=== PATIENT | female | born 1990 | race Caucasian/White ===

== ENCOUNTER → 2017-01-23 | Outpatient (CLI) | payer OTHER ==
[~2017-01-23] MED LIST: /CELE20CA PO; AUGM875T27 PO; NEUR300C PO; NO HOME MEDS; OXYC-208 PO
[2017-01-23 10:52] LABS: BASO % 0.2 % (0.0-1.0); EOS # 0.1 K/mm3 (0.0-0.50); EOS % 1.4 % (0.0-3.0); LYMPH # 2.6 K/mm3 (1.5-6.5); LYMPH % 29.7 % (24.0-44.0); MEAN CORPUSCULAR HEMOGLOBIN 29.6 pg (27.0-33.0); MEAN CORPUSCULAR HGB CONC 33.4 g/dl (32.0-36.5); MEAN CORPUSCULAR VOLUME 88.5 fl (80.0-96.0); MONO # 0.3 K/mm3 (0.0-0.8); MONO % 3.6 % (0.0-5.0); NEUTROPHILS # 5.3 K/mm3 (1.8-7.7); NEUTROPHILS % 63.8 % (36.0-66.0); RED CELL DISTRIBUTION WIDTH 12.6 % (11.5-14.5); WHITE BLOOD COUNT 8.2 K/mm3 (4.0-10.0)
[2017-01-23 11:19] LABS: ALBUMIN 3.7 GM/DL (3.2-5.2); ALBUMIN/GLOBULIN RATIO 0.97 (1.00-1.93); ALKALINE PHOSPHATASE 94 U/L (45-117); ALT/SGPT 37 U/L (12-78); ANION GAP 6 MEQ/L (8-16); AST/SGOT 30 U/L (15-37); BILIRUBIN,TOTAL 0.4 MG/DL (0.2-1.0); BLOOD UREA NITROGEN 7 MG/DL (7-18); CALCIUM LEVEL 8.7 MG/DL (8.5-10.1); CARBON DIOXIDE LEVEL 27 MEQ/L (21-32); CHLORIDE LEVEL 106 MEQ/L (98-107); CHOLESTEROL LEVEL 132 MG/DL (<200); CREATININE FOR GFR 0.62 MG/DL (0.55-1.02); FREE T4 1.13 NG/DL (0.76-1.46); GLOMERULAR FILTRATION RATE > 60.0 (>60); GLUCOSE, FASTING 82 MG/DL (70-105); POTASSIUM SERUM 4.1 MEQ/L (3.5-5.1); SODIUM LEVEL 139 MEQ/L (136-145); TOTAL PROTEIN 7.5 GM/DL (6.4-8.2); TRIGLYCERIDES LEVEL 62 MG/DL (<150)
== END ==
LOC: M LAB 10:14
PROVIDERS: ATTEND Nurse Practitioner Adult Health
DX: E55.9 Vitamin D deficiency, unspecified (principal); E78.00 Pure hypercholesterolemia, unspecified; G89.29 Other chronic pain; Z79.899 Other long term (current) drug therapy

== ENCOUNTER → 2017-02-03 | Outpatient (CLI) | payer OTHER ==
--- NOTE | 2017-02-03 11:33 | REP ---
Cervical spine seven views: There are no comparisons. Vertebral body heights, interspacing alignment are normal. There is no spondylolisthesis on flexion or extension. The facets are normally aligned. The odontoid view is unremarkable. There is no bony foraminal encroachment. The prevertebral soft tissues are normal. Impression: Negative plain film study of the cervical spine. Signed by Ector Coleman MD 02/03/2017 11:24 A
--- NOTE | 2017-02-03 11:34 | REP ---
Thoracic spine two views: Comparison is a PA and lateral chest dated 10/13/2010. Vertebral body heights, interspacing alignment are normal. Mineralization is normal. The pedicles are unremarkable. There is no interval change. Impression: Negative thoracic spine Signed by Ector Coleman MD 02/03/2017 11:25 A
--- NOTE | 2017-02-03 11:36 | REP ---
Left shoulder three views: Mineralization and joint spaces are normal. There is no fracture or dislocation. No calcifications or foreign bodies. Impression: Negative left shoulder. Right shoulder three views: Mineralization and joint spaces are normal. There is no fracture or dislocation. No calcifications or foreign bodies. Impression: Negative right shoulder. Signed by Ector Coleman MD 02/03/2017 11:27 A
--- NOTE | 2017-02-03 11:40 | REP ---
Bilateral hips and lumbar spine: Right hip two views: There are no comparisons. Mineralization and joint space are normal. There is no femoral head deformity. No fracture or dislocation. There is accessory ossicle superior to the greater trochanter. The study is otherwise unremarkable. Impression: Essentially negative right hip. Left hip two views: Mineralization and joint space are normal R normal. There is no femoral head deformity. No fracture or dislocation. There is a small accessory ossicle superior to the greater trochanter. The study is otherwise unremarkable. Impression: Essentially negative left hip. Lumbar spine five views: Comparison is 07/05/2015. The vertebral body heights, interspacing and alignment are normal and unchanged. There is no spondylolysis or spondylolisthesis. The pedicles, facets and sacroiliac articulations are unremarkable. Impression: Negative lumbar spine. There is no interval change. Signed by Ector Coleman MD 02/03/2017 11:31 A
--- NOTE | 2017-02-05 14:12 | SLEEPHOME ---
DATE OF PROCEDURE: 02/03/2017 REFERRING PROVIDER: Dr. Kamara INTERPRETATION: Diagnostic home sleep testing was performed due to concern for the obstructive sleep apnea syndrome. For testing, a NOX-T3 respiratory monitoring device was used. Continuous record was made of pulse, oxygen saturation, air flow, chest and abdominal strain, and body position. 10 hours and 59 minutes of data were reviewed. Of these, 8 hours and 21 minutes marked as time in bed. During the interval marked time in bed, there were 6 respiratory events identified of 10 seconds in duration or greater for a respiratory event index of 0.7. The events were hypopneic. Baseline pulse rate 73 beats per minute. Pulse rate ranged 54 to 112. Baseline saturation 94%. Lowest oxygen saturation achieved 90%. IMPRESSION: Normal home sleep testing with few respiratory events and adequate oxygen saturation. No evidence was identified to support obstructive sleep apnea syndrome.
== END ==
LOC: M SLEEP HO 10:02
PROVIDERS: ATTEND Nurse Practitioner Adult Health
DX: G47.33 Obstructive sleep apnea (adult) (pediatric) (principal)

== ENCOUNTER → 2018-05-24 | Outpatient (REF) | payer OTHER | LOC: M LAB REF 09:21 | DX: M54.5 Low back pain (principal) ==

== ENCOUNTER → 2018-09-27 | Outpatient (REF) | payer OTHER | LOC: M SFHCLERA 17:34 | DX: J02.9 Acute pharyngitis, unspecified (principal) ==

== ENCOUNTER → 2019-02-04 | Outpatient (REF) | payer OTHER ==
[~2019-02-04] MED LIST changes: -/CELE20CA PO; +CELE1CAP4 PO
[2019-02-04 13:00] LABS: APPEARANCE, URINE CLOUDY (CLEAR); BACTERIA, URINE AUTO 1+ (NEGATIVE); BILIRUBIN, URINE AUTO NEGATIVE (NEGATIVE); BLOOD, URINE BLOOD NEGATIVE (NEGATIVE); COLOR, URINE YELLOW (YELLOW); GLUCOSE, URINE (UA) AUTO NEGATIVE (NEGATIVE); KETONE, URINE AUTO TRACE mg/dL (NEGATIVE); LEUKOCYTE ESTERASE, URINE AUTO 2+ (NEGATIVE); MUCUS, URINE SMALL (NEGATIVE); NITRITE, URINE AUTO NEGATIVE (NEGATIVE); PROTEIN, URINE AUTO NEGATIVE (NEGATIVE); RBC, URINE AUTO 6 /HPF (0-3); SPECIFIC GRAVITY URINE AUTO 1.025 (1.002-1.035); SQUAMOUS EPITHELIAL CELL UR AU 25 /HPF (0-6); UROBILINOGEN, URINE AUTO 0.2 mg/dL (0.0-2.0); WBC, URINE AUTO 28 /HPF (0-3)
== END ==
LOC: M LAB REF 12:35
PROVIDERS: ATTEND Physician Assistant Medical
DX: R30.0 Dysuria (principal)